=== PATIENT | female | born 1995 | race Asian ===

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

== ENCOUNTER 2018-08-29 16:37 | Emergency (ER) | payer BC ==
[~2018-08-29] VITALS: Ht 157.5 cm; Wt 58.5 kg
[2018-08-29 16:45] VITALS: TEMP 98.1
[2018-08-29 18:23] VITALS: BP 113/70
== END 2018-08-29 18:23 | disposition home or self-care (01) ==
LOC: ED 16:37
DX: S09.90XA Unspecified injury of head, initial encounter (principal); S00.83XA Contusion of other part of head, initial encounter; S10.93XA Contusion of unspecified part of neck, initial encounter; S80.212A Abrasion, left knee, initial encounter; S10.91XA Abrasion of unspecified part of neck, initial encounter; Y04.0XXA Assault by unarmed brawl or fight, initial encounter
CPT/HCPCS: 99283